=== PATIENT | female | born 1995 | race Caucasian/White ===

== ENCOUNTER 2018-08-03 22:35 | Emergency (ER) | payer OTHER ==
[2018-08-03 22:57] VITALS: BP 137/86; PULSE 91; RESP 16; TEMP 98; O2SAT 100
== END 2018-08-04 00:05 | disposition home or self-care (01) | DRG 563 ==
LOC: ED 22:35
DX: S63.630A Sprain of interphalangeal joint of right index finger, initial encounter (principal); W23.0XXA Caught, crushed, jammed, or pinched between moving objects, initial encounter; Y92.128 Other place in nursing home as the place of occurrence of the external cause
CPT/HCPCS: 73140; 99282